=== PATIENT | female | born 1950 | race Caucasian/White ===

== ENCOUNTER 2016-08-13 21:36 | Emergency (ER) | payer MEDICARE, OTHER ==
[~2016-08-13] VITALS: Ht 165.1 cm; Wt 64.4 kg
[~2016-08-13 21:36] MED LIST: AMIT10 PO; CIPR500T4 PO; METO50TA PO; PYRI200T4 PO; [UNRECOGNIZED DRUG - CODE] PO
[2016-08-13 21:41] VITALS: BP 152/94; PULSE 104; RESP 18; TEMP 98.1; O2SAT 99
[2016-08-13] MEDS ORDERED: AMIT25TA9 PO (21:53)
[2016-08-13] MEDS ORDERED: METO25TA3 PO (21:53)
[2016-08-13 21:55] LABS: BLOOD, URINE LARGE (NEG); GLUCOSE,URINE 100 mg/dL (NEG); KETONE, URINE NEG (NEG)
[2016-08-13 21:58] LABS: NITRITE,URINE POS (NEG)
[2016-08-13 21:59] LABS: URINE COLOR YELLOW (YELLW/STRAW)
[2016-08-13 22:00] LABS: BACTERIA, URINE FEW /hpf; COMMENT (UR) CULTURE INDICATED; CULTURE IF INDICATED CULTURE INDICATED; SQUAMOUS EPITHELIAL CELL URINE 0-5 /hpf (0-5)
--- NOTE | 2016-08-13 22:01 | PD ---
HPI Chief Complaint: Complaint Time Seen by Provider: 22:01 Travel History International Travel<30 days: No Contact w/Intl Traveler<30days: No Traveled to known affect area: No History of Present Illness HPI 66-year-old occasional female presents the emergency department with approximately one week history of increased frequency and burning with urination with some noted hematuria this evening. Patient has a history of recurrent cystitis in the past. Patient was last treated here 2 years ago Cipro with good effect. Patient denies nausea, vomiting, fever, flank pain or abdominal pain at this time. She has no known drug allergies. PFSH Past Medical History Cardiovascular Problems: Yes (HTN) GERD: Yes Genitourinary: Yes (Interstitial cystitis ) Headaches: Yes Hypertension: Yes Reproductive: Yes (Endometriosis) Tetanus Vaccination: < 5 Years Influenza Vaccination: No ?: Not Menopausal: Yes : 4 Para: 4 Tubal Ligation: Yes Past Surgical History Cholecystectomy: Yes Gynecologic Surgery: Yes (Rt. ovary removed ) Tonsillectomy: Yes Other Surgery: Yes (Hakeem funduplication ) Social History Alcohol Use: Yes (Occ.) Tobacco Use: No Substance Use: No Allergies-Medications (Allergen,Severity, Reaction): Coded Allergies: No Known Allergies (Unverified , 08/13/16) Reported Meds & Prescriptions Reported Meds & Active Scripts Active Reported Metoprolol Tartrate 25 Mg Tab 25 Mg PO BID Amitriptyline (Amitriptyline HCl) 25 Mg Tab 30 Mg PO HS Review of Systems Except as stated in HPI: all other systems reviewed are Neg General / Constitutional: No: Fever Eyes: No: Visual changes HENT: No: Headaches Cardiovascular: No: Chest Pain or Discomfort Respiratory: No: Shortness of Breath Gastrointestinal: No: Abdominal Pain Genitourinary: Positive: Urgency, Frequency, Dysuria, Hematuria Musculoskeletal: No: Pain Skin: No Rash Neurologic: No: Weakness Psychiatric: No: Depression Endocrine: No: Polydipsia Hematologic/Lymphatic: No: Easy Bruising Physical Exam Narrative GENERAL: Patient is in no acute distress. SKIN: Warm and dry. Normal color. Normal turgor. HEAD: Atraumatic. Normocephalic. EYES: Pupils equal and round. No scleral icterus. No injection or drainage. ENT: No nasal bleeding or discharge. Mucous membranes pink and moist. Pharynx is normal. NECK: Trachea midline. No JVD. CARDIOVASCULAR: Regular rate and rhythm. RESPIRATORY: No accessory muscle use. Clear to auscultation. Breath sounds equal bilaterally. GASTROINTESTINAL: Abdomen soft, non-tender, nondistended. Hepatic and splenic margins not palpable. No CVA tenderness. MUSCULOSKELETAL: Extremities without clubbing, cyanosis, or edema. No obvious deformities. NEUROLOGICAL: Awake and alert. No obvious cranial nerve deficits. Motor grossly within normal limits. Five out of 5 muscle strength in the arms and legs. Normal speech. PSYCHIATRIC: Appropriate mood and affect; insight and judgment normal. Data Data Last Documented VS Vital Signs Date Time Temp Pulse Resp B/P Pulse Ox O2 Delivery O2 Flow Rate FiO2 08/13/16 21:41 98.1 104 18 152/94 99 Orders Urinalysis - C+S If Indicated (08/13/16 21:44) Urine Culture (08/13/16 21:48) Labs Laboratory Tests Test 08/13/16 21:48 Urine Color YELLOW Urine Turbidity HAZY Urine pH 6.0 Urine Specific [place] 1.005 Urine Protein 30 mg/dL Urine Glucose (UA) 100 mg/dL Urine Ketones NEG mg/dL Urine Occult Blood LARGE Urine Nitrite POS Urine Bilirubin NEG Urine Leukocyte Esterase LARGE Urine RBC 4-9 /hpf Urine WBC 25-49 /hpf Urine Squamous Epithelial 0-5 /hpf Cells Urine Bacteria FEW /hpf Microscopic Urinalysis Comment CULTURE INDICATED MDM Medical Decision Making Medical Screen Exam Complete: Yes Emergency Medical Condition: Yes Differential Diagnosis Urinary frequency. Dysuria. Urinary tract infection. Narrative Course Patient is medically stable at time of exam. Urinalysis suggests urinary tract infection with culture pending. Patient is given her first dose of Cipro 500 mg by mouth now. Patient is continue on Cipro 500 mg twice a day 7 days. Is recommended patient follow-up with her primary care physician in the next 10- 14 days. Patient may return the emergency Department with worsening symptoms as needed. Diagnosis Primary Impression: Urinary tract infection Qualified Code: N30.01 - Acute cystitis with hematuria Patient Instructions: Dysuria (ED), General Instructions Additional Instructions: Urinalysis suggests urinary tract infection with culture pending. Patient is given her first dose of Cipro 500 mg by mouth now. Patient is continue on Cipro 500 mg twice a day 7 days. Is recommended patient follow-up with her primary care physician in the next 10- 14 days. Patient may return the emergency Department with worsening symptoms as needed. Disposition: 01 DISCHARGE HOME Condition: Stable Justyn Giron Aug 13, 2016 22:01
[2016-08-13] MEDS ORDERED: CIPROFLOXACIN 500 MG TAB PO ONE (22:15)
[2016-08-13] MEDS ORDERED: CIPR-9 PO (22:24)
== END 2016-08-13 22:25 | disposition home or self-care (01) ==
LOC: PHEFT 21:36
DX: N30.01 Acute cystitis with hematuria (principal); B96.20 Unspecified Escherichia coli [E. coli] as the cause of diseases classified elsewhere
CPT/HCPCS: 81001; 87077; 87086; 87186; 99283